=== PATIENT | female | born 1975 | race African-American/Black ===

== ENCOUNTER 2020-10-25 23:39 | Emergency (ER) | payer OTHER ==
[~2020-10-25] VITALS: Ht 157.5 cm; Wt 77.1 kg
[~2020-10-25 23:39] MED LIST: AMLODIPINE BESY10 MG PO; ATIVAN1 MG PO; BUSPIRONE HCL10 MG; CYCLOBENZAPRINE10 MG PO; IBUPROFEN 800800 M1 PO; NORCO 5-325 TA1 EACH PO; PROTONIX40 M1 PO; TOPROL XL100 MG PO; ULTRAM 50MG TAB50 MG PO; ZANTAC 150MG T150 M1 PO; ZPAK PO
[2020-10-26] MEDS ORDERED: ASA81BEC PO (00:22)
[2020-10-26] MEDS ORDERED: TOPROL XL50 MG PO (00:23)
[2020-10-26 00:42] LABS: ABSOLUTE NEUTROPHILS 3.8 thou/uL (1.4-8.2); BASOPHILS 0.5 % (0.0-2.0); EOSINOPHILS 1.2 % (0.0-3.0); HEMATOCRIT 43.8 % (37.0-47.0); HEMOGLOBIN 14.6 gm/dL (12.0-15.0); LYMPHOCYTES 34.7 % (24.0-44.0); MCH 31.4 pg (26.0-34.0); MCHC 33.3 g/dL (28.0-37.0); MCV 94.2 fL (80.0-100.0); MONOCYTES 9.1 % (1.0-8.0); PLATELET COUNT 267 thou/uL (150-400); POLYS 54.5 % (36.0-66.0); RBC 4.65 mil/uL (4.20-5.00); RDW 15.3 % (10.5-14.5)
[2020-10-26 00:50] LABS: ANION GAP 11 mmol/L (7-16); BUN 7 mg/dL (7-18); CALCIUM 9.1 mg/dL (8.5-10.1); CHLORIDE 106 mmol/L (98-107); CO2 22 mmol/L (21-32); CREATININE 0.6 mg/dL (0.6-1.0); GLUCOSE 100 mg/dL (74-106); SODIUM 139 mmol/L (136-145)
[2020-10-26 00:51] LABS: POTASSIUM 5.3 mmol/L (3.5-5.1)
[2020-10-26 00:59] LABS: ALBUMIN 3.2 g/dL (3.4-5.0); SGOT 51 U/L (15-37); SGPT 39 U/L (14-59); TOTAL BILIRUBIN 0.3 mg/dL (0.2-1.0); TOTAL PROTEIN 7.5 g/dL (6.4-8.2); TROPONIN-I <0.06 ng/mL (<0.06)
[2020-10-26 05:10] VITALS: BP 116/63
--- NOTE | 2020-10-26 16:21 | EKG ---
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 : 1975 Requested By: Sathish De Leon Order Number: [id number] MD: Jake Dang Measurements Intervals [place] Rate: 88 P: 47 VA: 147 QRS: -25 QRSD: 99 T: -17 QT: 370 QTc: 448 Interpretive Statements Sinus rhythm Inferior infarct, age indeterminate Baseline wander in lead(s) II,aVF Compared to ECG 02/18/2015 15:40:48 Inferior Q waves are more prominent Electronically Signed On 10-26-2020 16:21:36 CDT by Jake Dang [email or web address] <ELECTRONICALLY SIGNED> By: Jake Dang MD, [facility] 10/26/20 1621 [id number] Jake Dang MD, [facility] /EPI
--- NOTE | 2020-10-26 16:22 | EKG ---
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
== END 2020-10-26 05:10 | disposition home or self-care (01) ==
LOC: ER 23:39
PROVIDERS: Emergency Medicine
DX: R07.89 Other chest pain (principal); I10 Essential (primary) hypertension; I25.10 Atherosclerotic heart disease of native coronary artery without angina pectoris; K21.9 Gastro-esophageal reflux disease without esophagitis; F12.90 Cannabis use, unspecified, uncomplicated; F17.210 Nicotine dependence, cigarettes, uncomplicated; Z95.5 Presence of coronary angioplasty implant and graft; Z88.0 Allergy status to penicillin; Z88.8 Allergy status to other drugs, medicaments and biological substances; Z79.82 Long term (current) use of aspirin; Z98.890 Other specified postprocedural states